=== PATIENT | female | born 1975 | race Caucasian/White ===

== ENCOUNTER → 2023-12-04 13:07 | Outpatient (REF) | payer BC, SELFPAY | LOC: WDC 13:07 | PROVIDERS: ATTENDING PHYSICIAN Emergency Medicine | DX: Z12.31 Encounter for screening mammogram for malignant neoplasm of breast (principal) | CPT/HCPCS: 77063; 77067 ==

== ENCOUNTER 2024-04-23 06:20 | Day surgery (SDC) | payer BC, SELFPAY | END 2024-04-23 14:09 | disposition home or self-care (01) | LOC: GI 06:20 | PROVIDERS: ATTENDING PHYSICIAN Internal Medicine Gastroenterology | DX: Z12.11 Encounter for screening for malignant neoplasm of colon (principal); K64.8 Other hemorrhoids; Z83.719 Family history of colon polyps, unspecified | CPT/HCPCS: G0105 ==

== ENCOUNTER 2024-11-06 14:58 | Emergency (ER) | payer BC, SELFPAY ==
[2024-11-06 15:05] VITALS: BP 125/85
[2024-11-06] MEDS: MOTRIN 400 MG PO (17:09)
[2024-11-06 17:35] VITALS: BP 125/83
--- NOTE | 2024-11-06 17:44 | ED.GENMED ---
History of Present Illness
General
Chief Complaint: BURN-MINOR
Source: patient
Exam Limitations: none
Time Seen by Provider: 11/06/24 16:26
Nursing documentation reviewed up to this point in time: agreed with
History of Present Illness
History of Present Illness:
Patient is a 48-year-old female who presents to the emergency department with concerns of a burn to her left palm. Patient states she was power washing earlier today when she accidentally placed her left palm on the machine that was very hot. She
removed it almost instantaneously however feels she may have significantly burned her left palm. She immediately placed her palm in a bag of ice water.
She describes pain across her entire left palm. She denies any other associated injuries or other areas of involvement. She denies any numbness/tingling in left hand or fingers.
No other concerns today
Past History
Past History
ED Past Medical History: None
ED Past Surgical History: Gynecological
Social History
Tobacco: Non-smoker
Alcohol: Occasional
Drug: None
Personal:
Living: with family
Family History
Family History: Other (Noncontributory)
Review of Systems
Review of Systems
Allergies reviewed?: Yes
All Other Systems: ROS reviewed and negative except as documented in HPI and ROS
Phy Exam
Physical Exam
Physical Exam:
Vitals: Patient's vital signs are stable. Afebrile
General: Patient is well appearing, no acute distress
Skin: Left palm with area of blisters and tenderness extending from base of thumb across central palm. Very mild erythema noted no signs of eschar or charring. No active bleeding. No crepitus or fluctuance.
Head: Normocephalic, atraumatic
Throat: Protecting airway
Neck: Normal ROM, no cervical spine tenderness
Cardiac: Regular rate
Pulm: No apparent respiratory distress
Abdomen: Nondistended
Extremities: Superficial burn to left palm as described above. Sensation fully intact with normal capillary refill in all fingers. Patient has palpable radial/ulnar pulses and normal range of motion in fingers and wrist, although minimally limited
by pain
Neuro: Grossly intact
Psychiatric: Normal affect.
Course
Orders/Labs/Results
Orders:
Orders
11/06/24 16:55
Ibuprofen [Motrin] 400 mg PO NOW STA
Vital Signs
Initial and Last Documented VS:
Initial Vital Signs
Temp Pulse Resp BP Pulse Ox
97.7 F 89 20 125/85 99
11/06/24 15:05 11/06/24 15:05 11/06/24 15:05 11/06/24 15:05 11/06/24 15:05
Last Documented Vital Signs
Temp Pulse Resp BP Pulse Ox
97.7 F 89 20 125/83 99
11/06/24 15:05 11/06/24 15:05 11/06/24 15:05 11/06/24 17:35 11/06/24 17:44
MDM/Problems Addressed
Differential Diagnosis Includes:
Not limited to: First-degree burn, second-degree burn, cellulitis, etc.
MDM/Problems Addressed:
48-year-old female presenting with localized burn to left palm which occurred while accidentally touching the hot power washing machine earlier today. The only involved area was her left palm. Patient has stable vital signs on arrival. Physical
exam as above. Burn seems consistent with a superficial partial-thickness burn only involving the palmar surface without evidence of full-thickness injury, deep tissue involvement, or circumferential burn. There are no signs of infection, vascular
compromise, or associated neuro deficit. Sensation and capillary refill intact, as well as range of motion. No active bleeding.
Feel this patient's injury is appropriate for outpatient management. Wound was cleaned and dressed appropriately with topical bacitracin and nonadherent dressing. Patient given detailed burn care instructions, advised on signs of infection or
worsening instructed to follow-up with primary care provider this week to ensure healing appropriately. Very strict return precautions discussed. Patient comfortable with plan
Chronic conditions affecting care:
N/A
Acute Exacerbation and/or Progression of Chronic Illness:
N/A
*Pulse Oximetry
SaO2: 99
Oxygen Mode of Delivery: Room air
Patient hypoxic: no
*EKG
Interpreted by ED Provider?: NA
*Incident Engineer Interpretation
Rate: Incident Engineer- N/A
*Critical Care Note
Total Time (30-74mins, 75-104mins- exclusive of procedures): Not Applicable
ED Attending Note
-
Portions of this chart may have been created with voice recognition software.� Occasional wrong word or��sound alike� substitutions may have occurred due to the inherent limitations of voice recognition software.
Discharge Plan
Departure
Patient Disposition: Home (Routine Discharge)
Date of Disposition: 11/06/24
Time of Disposition: 17:12
Patient with high blood pressure during this ER visit?: No
Condition: Good
Covid-19: Not Applicable
Discharge Problem:
Burn of left palm
Instructions: [facility] [place] ([facility]), Wound care - ED discharge instructions
Prescriptions:
No Action
No Meds [No Current Medications]
Referrals:
Kathie Hand MD [Family Provider, Internal Medicine] - Follow up in 5-7 days
Activity Restrictions/Additional Instructions:
RETURN TO THE EMERGENCY DEPARTMENT WITH ANY NUMBNESS/TINGLING IN LEFT HAND, INTRACTABLE PAIN, OR ANY SIGNS OF INFECTION INCLUDING SIGNIFICANT REDNESS, WARMTH, SWELLING, PURULENT DRAINAGE/RED STREAKING, FEVERS
- Please be sure to adhere to very strict wound care including wet to dry dressings with bacitracin. Please change bandage twice a day. Monitor very closely for signs of infection. You can take Tylenol and/or Motrin as needed for pain
- Follow-up with primary care for further evaluation/management to ensure that symptoms are improving
Monitor your symptoms closely and return to the emergency department with any acute worsening/new symptoms or any signs of infection
Interventions
Interventions:
*Risk Screen - Suicide Last Done: 11/06/24 15:05
*General Assessment Last Done: 11/06/24 15:05
*Neglect/Abuse Screening Last Done: 11/06/24 15:18
*ED- Fall Risk Assessment Last Done: 11/06/24 15:18
*ED COVID-19 Vaccine History Last Done: 11/06/24 15:18
*Nursing Disposition Last Done: 11/06/24 17:35
ED-Skin Assessment Last Done: 11/06/24 15:18
Discharge Date and Time
Discharge Date/Time: 11/06/24 17:36
Print Language: [id number]
== END 2024-11-06 17:36 | disposition home or self-care (01) ==
LOC: EMR 14:58
PROVIDERS: EMERGENCY PHYSICIAN Student in an Organized Health Care Education/Training Program; FAMILY PHYSICIAN Emergency Medicine
DX: T23.252A Burn of second degree of left palm, initial encounter (principal); T31.0 Burns involving less than 10% of body surface; X17.XXXA Contact with hot engines, machinery and tools, initial encounter
CPT/HCPCS: 99283

== ENCOUNTER → 2024-12-30 15:13 | Outpatient (REF) | payer BC, SELFPAY | LOC: WDC 15:13 | PROVIDERS: ATTENDING PHYSICIAN Obstetrics & Gynecology; FAMILY PHYSICIAN Emergency Medicine | DX: Z12.31 Encounter for screening mammogram for malignant neoplasm of breast (principal) | CPT/HCPCS: 77063; 77067 ==